=== PATIENT | male | born 1960 | race Hispanic/Latino ===

== ENCOUNTER → 2022-04-24 | Outpatient (CLI) | payer MEDICAID ==
[~2022-04-24] MED LIST: APIX2.5T PO; ASPI-1005 PO; ATOR40TA69 PO; BRIM5DRO OP; CLOP75TA14 PO; DOCU100T28 PO; IOHEXOL 350 MG/ML 100ML INFUS..BTL IV ONE; IOHEXOL-350 75 ML VIAL IV ONE; LATA2.5D14 OP; LISI5TAB21 PO; METO-409 PO; PANT40TA PO
== END | disposition home or self-care (01) ==
LOC: RAH 10:30
PROVIDERS: ATTEND Internal Medicine Cardiovascular Disease
DX: I73.9 Peripheral vascular disease, unspecified (principal); I74.5 Embolism and thrombosis of iliac artery
CPT/HCPCS: 75635; Q9967 ×2